=== PATIENT | male | born 1950 | race Caucasian/White ===

== ENCOUNTER 2021-09-02 10:23 | Outpatient (CLI) | payer MEDICARE, BC ==
[2021-09-02 11:12] LABS: BFAPPEAR CLOUDY; BFCOLOR AMBER; BFVOLUME 64 ML; LYMPHOCYTES,BODY FLUID 31 %; MONOCYTES,BODY FLUID 3 %; NEUTROPHILS,BODY FLUID 66 %
[2021-09-02 11:13] LABS: BF RBC COUNT 21500 /CU MM; BF WBC COUNT 14000 /CU MM (0-1000)
== END 2021-09-02 23:59 | disposition home or self-care (01) ==
LOC: LAB SPEC 10:23
PROVIDERS: ATTEND Orthopaedic Surgery
DX: M97.11XA Periprosthetic fracture around internal prosthetic right knee joint, initial encounter (principal)
CPT/HCPCS: 87070; 89051

== ENCOUNTER 2021-12-30 14:42 | Outpatient (CLI) | payer MEDICARE, BC ==
[2021-12-30 15:50] LABS: APPEARANCE,SYNOVIAL FLUID BLOODY; COLOR,SYNOVIAL FLUID RED; SYN WBC 17875 /CU MM (0-200)
[2021-12-30 15:51] LABS: SYN RBC 147625 /CU MM (0)
[2021-12-30 16:00] LABS: LYMPHOCYTES,SYNOVIAL FLUID 12 % (0-75); MONOCYTES,SYNOVIAL FLUID 6 % (0-0); NEUTROPHILS,SYNOVIAL FLUID 83 % (0-25)
== END 2021-12-30 23:59 | disposition home or self-care (01) ==
LOC: LAB SPEC 14:42
PROVIDERS: ATTEND Orthopaedic Surgery
DX: M97.11XA Periprosthetic fracture around internal prosthetic right knee joint, initial encounter (principal)
CPT/HCPCS: 87070; 87075; 87102; 87106; 89051